=== PATIENT | male | born 2005 | race Caucasian/White ===

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

== ENCOUNTER 2024-05-04 11:17 | Emergency (ER) | payer BC, OTHER ==
[2024-05-04 11:22] VITALS: BP 153/88; PULSE 92; RESP 16; TEMP 97.8
--- NOTE | 2024-05-04 11:54 | ED ---
General Adult HPI - General Chief complaint: Recheck/Abnormal Lab/Rx Stated complaint: Figueroa hand rash Time Seen by Provider: 05/04/24 11:23 Source: patient, RN notes reviewed Mode of arrival: ambulatory Limitations: no limitations - History of Present Illness Initial comments: This is a 18-year-old male with no stomach medical history resents emergency ro om with his father for complaint of bilateral hand rash. He states that over the past 7 months he has been experiencing a intermittent rash of his bilateral hands that he characterizes as a red, itchy, and rough skin. States that his hands will go through cycles with the skin becoming inflamed and red and pruritic. Patient was using a topical steroid cream prescribed by outside emergency department a few months ago however states he ran out of this cream and the rash has persisted. He denies use of new soaps, lotions, detergents, perfumes. 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 He denies fevers, chills. Denies family history of psoriasis or known dermatological conditions. - Related Data Previous Rx's Medication Instructions Recorded Cephalexin [Keflex] 500 mg PO Q6H #40 cap 07/24/20 Amoxicillin 500 mg PO Q8H #30 capsule 12/11/21 Erythromycin Ophth Oint [Romycin 1 applic RIGHT EYE QID #3.5 gm 04/19/22 Ophth Oint] Allergies Allergy/AdvReac Type Severity Reaction Status Date / Time No Known Allergies Allergy Verified 05/04/24 11:22 Review of Systems ROS Statement: Those systems with pertinent positive or pertinent negative responses have been documented in the HPI. ROS Other: All systems not noted in ROS Statement are negative. Past Medical History Past Medical History: No Reported History History of Any Multi-Drug Resistant Organisms: None Reported Past Surgical History: Adenoidectomy, Appendectomy, Ear Surgery Past Psychological History: No Psychological Hx Reported Smoking Status: Never smoker Past Alcohol Use History: None Reported Past Drug Use History: Marijuana General Exam Limitations: no limitations General appearance: alert, in no apparent distress ENT exam: Present: normal exam, mucous membranes moist Neck exam: Present: normal inspection. Absent: tenderness, meningismus, lymphadenopathy Respiratory exam: Present: normal lung sounds bilaterally. Absent: respiratory distress, wheezes, rales, rhonchi, stridor Cardiovascular Exam: Present: regular rate, normal rhythm, normal heart sounds. Absent: systolic murmur, diastolic murmur, rubs, gallop, clicks GI/Abdominal exam: Present: soft, normal bowel sounds. Absent: distended, tenderness, guarding, rebound, rigid Expanded Type of lesion: Present: rash Distribution of rash: other (bilateral hands) Description of rash: Present: erythematous, crusting Course Vital Signs 05/04/24 11:18 Temperature 97.8 F Pulse Rate 92 Respiratory 16 Rate Blood Pressure 153/88 O2 Sat by Pulse 98 Oximetry Medical Decision Making - Medical Decision Making Was pt. sent in by a medical professional or institution (, [facility], [employer], urgent care, hospital, or [facility]...) When possible be specific @ -No Did you speak to anyone other than the patient for history (EMS, parent, family, police, friend...)? What history was obtained from this source @ -No Did you review nursing and triage notes (agree or disagree)? Why? @ -I reviewed and agree with nursing and triage notes Were old charts reviewed (outside hosp., previous admission, EMS record, old EKG, old radiological studies, urgent care reports/EKG's, [facility] records)? Report findings @ -No old charts were reviewed Differential Diagnosis (chest pain, altered mental status, abdominal pain women, abdominal pain men, vaginal bleeding, weakness, fever, dyspnea, syncope, headache, dizziness, GI bleed, back pain, seizure, CVA, palpatations, mental health, musculoskeletal)? @ -Atopic dermatitis, eczema, psoriasis, allergic dermatitis, this is not all inclusive list EKG interpreted by me (3pts min.). @ -None X-rays interpreted by me (1pt min.). @ -None done CT interpreted by me (1pt min.). @ -None done U/S interpreted by me (1pt. min.). @ -None done What testing was considered but not performed or refused? (CT, X-rays, U/S, labs)? Why? @ -None What meds were considered but not given or refused? Why? @ -None Did you discuss the management of the patient with other professionals (professionals i.e. , [facility], [employer] W[employer] INSPECTOR, lab, RT, psych nurse, socially responsible investment adviser, transitions manager, teacher, admissions officer, watch caser)? Give summary @ -No Was smoking cessation discussed for >3mins.? @ -No Was critical care preformed (if so, how long)? @ -No Were there social determinants of health that impacted care today? How? (Homelessness, low income, unemployed, alcoholism, drug addiction, transportation, low edu. Level, literacy, decrease access to med. care, custodial, rehab)? @ -No Was there de-escalation of care discussed even if they declined (Discuss DNR or withdrawal of care, Hospice)? DNR status @ -No What co-morbidities impacted this encounter? (DM, HTN, Smoking, COPD, CAD, Cancer, CVA, ARF, Chemo, Hep., AIDS, mental health diagnosis, sleep apnea, morbid obesity)? @ -None Was patient admitted / discharged? Hospital course, mention meds given and route, prescriptions, significant lab abnormalities, going to OR and other pertinent info. @ -Discharge. 89-year-old male presenting with bilateral hand rash. Rash started to be erythematous, scaly and pruritic. Rash aligns with dermatitis. Patient is provided with topical steroid cream instructed to continue to apply the cream 2-3 times per day and follow-up with primary care provider for further evaluation. He has Benadryl as needed for intermittent itching. Case discussed with Dr. Pride Undiagnosed new problem with uncertain prognosis? @ -No Drug Therapy requiring intensive monitoring for toxicity (Heparin, Nitro, Insulin, Cardizem)? @ -No Were any procedures done? @ -No Diagnosis/symptom? @ -Dermatitis Acute, or Chronic, or Acute on Chronic? @ -Acute Uncomplicated (without systemic symptoms) or Complicated (systemic symptoms)? @ -Uncomplicated Side effects of treatment? @ -No Exacerbation, Progression, or Severe Exacerbation? @ -No Poses a threat to life or bodily function? How? (Chest pain, [place], [place], pneumonia, PE, COPD, DKA, ARF, appy, cholecystitis, CVA, Diverticulitis, Homicidal, Suicidal, threat to staff... and all critical care pts) @ -No Disposition Clinical Impression: Dermatitis Disposition: HOME SELF-CARE Condition: Good Instructions (If sedation given, give patient instructions): Dermatitis (ED) Additional Instructions: Please return to the Emergency Department if symptoms worsen or any other conc erns. Continue to use topical cream over areas of affected skin 2-3 times per day. Is recommend they follow-up with primary care provider for further evaluation. Use Benadryl as needed for intermittent itching. Is patient prescribed a controlled substance at d/c from ED?: No Referrals: Lillie Urena MD [Primary Care Provider] - 1-2 days Time of Disposition: 11:59
[2024-05-04] MEDS: TRIAMCINOLONE ACET 0.5% CREAM 15 GM TUBE TOPICAL STA (12:10)
== END 2024-05-04 12:21 | disposition home or self-care (01) ==
LOC: EC 11:17
DX: L30.9 Dermatitis, unspecified (principal)
CPT/HCPCS: 99282